=== PATIENT | male | born 1985 | race Hispanic/Latino ===

== ENCOUNTER 2017-04-04 07:46 | Emergency (ER) | payer OTHER ==
[~2017-04-04] VITALS: Ht 177.8 cm; Wt 90.0 kg
--- NOTE | 2017-04-04 09:12 | REP ---
Scrotal sonography: History: Right-sided testalgia. Findings: High-resolution bilateral scrotal sonography shows no evidence of intratesticular mass on either side. Right testis measures 5.6 x 2.8 x 3.4 cm. Left testicular dimensions are 4.8 x 2.6 x 3.2 cm. The right testis is hyperemic compared to the left. There is no evidence of torsion. Testicular resistive indices are 0.45 on the right and 0.51 on the left. There is a 7 mm cystic structure peripherally adjacent to the head of the epididymis on the left. A very small amount of left-sided hydrocele fluid is seen. Impression: Hyperemia right testis, question orchitis. No intratesticular mass or hematoma is seen. No evidence of torsion. Signed by Daryn Kapoor MD 04/04/2017 09:13 A
[2017-04-04] MEDS ORDERED: IBUP-1022 PO (09:58)
[2017-04-04 10:03] VITALS: BP 148/66
== END 2017-04-04 10:08 | disposition home or self-care (01) ==
LOC: M ED 07:46
DX: N45.2 Orchitis (principal)

== ENCOUNTER → 2017-10-05 | Outpatient (REF) | payer OTHER ==
[2017-10-05 10:35] LABS: MOTILE SPERM ABSENT (ABSENT); SEMEN APPEARANCE OPAQUE (OPAQUE); SEMEN VISCOSITY VISCOUS (LIQUID); SEMEN VOLUME 2.3 ml (4.0-5.0); WBC CONCENTRATION <=1 M/ml (<=1 M/ml)
[2017-10-05 10:36] LABS: IMMMOTILE SPERM CENTRIFUGED PRESENT (ABSENT); IMMOTILE SPERM PRESENT (ABSENT); MOTILE SPERM CENTRIFUGED ABSENT (ABSENT)
== END ==
LOC: M LAB REF 10:10
DX: Z30.2 Encounter for sterilization (principal)
CPT/HCPCS: 89321

== ENCOUNTER → 2017-12-01 | Outpatient (REF) | payer OTHER ==
[2017-12-01 12:47] LABS: SEMEN APPEARANCE OPAQUE (OPAQUE); SEMEN VISCOSITY VISCOUS (LIQUID); SEMEN VOLUME 2.5 ml (4.0-5.0); SPERM ABNORMAL FORMS WBC'S NOTED
[2017-12-01 12:48] LABS: IMMMOTILE SPERM CENTRIFUGED ABSENT (ABSENT); IMMOTILE SPERM ABSENT (ABSENT); MOTILE SPERM ABSENT (ABSENT); MOTILE SPERM CENTRIFUGED ABSENT (ABSENT); WBC CONCENTRATION <=1 M/ml (<=1 M/ml)
== END ==
LOC: M LAB REF 11:46
DX: Z98.52 Vasectomy status (principal)